=== PATIENT | male | born 1965 | race Hispanic/Latino ===

== ENCOUNTER 2019-03-16 10:06 | Inpatient (IN) | payer SELFPAY ==
[~2019-03-16] VITALS: Ht 165.1 cm; Wt 60.5 kg
[2019-03-16] VITALS (10 sets, daily range): BP systolic 98–135; BP diastolic 60–73
[~2019-03-16 10:06] MED LIST: CLOTRIMAZOLE1 % TOP; DOXYCYCL HYC100 MG PO; GLYBURIDE5 MG PO; KEFLEX500 M1 PO; LEVEMIR1000 UNITS; LISINOPRIL5 MG PO; LOPID600 MG PO; LORTAB 10-325 M1 TAB PO; LORTAB 5/3255 MG PO; LORTAB 7.57.5 MG PO; METFORMIN500 MG PO; NOVOLIN 70/30 SC; PENICILLN VK500 MG PO; PERCOCET 5/325M1 TAB PO; SIMVASTATIN10 MG PO
--- NOTE | 2019-03-16 10:17 | NUR ---
PATIENT TO ROOM VIA WHEELCHAIR AND PHYSICIAN AT BEDSIDE FOR EVAL
--- NOTE | 2019-03-16 10:52 | NUR ---
IV ACCESS OBTAINED NITRO SL PROVIDED AND ASPIRIN GIVEN O2 APPLIED FOR CARDIAC PROTOCOL, SAMANTHA STEWARD ATTEMPTED SECND ACCESS W/O SUCCESS INTERLOCKER WILL RETRY, IVF STARTED ORDERED, VS SIMON, PT DYPNIC BUT O2 SATS 100% ON ROOM AIR PRIOR TO O2 APPLICATION, PT ADMITS TO BEING NON COMPLIANT DIABETIC WELL.
[2019-03-16 10:56] LABS: HEMATOCRIT 34.7 % (39.0-50.0); HEMOGLOBIN 14.3 g/dl (14.0-18.0); MEAN CELL VOLUME 92.5 fL CALC (80.0-100.0); MEAN CORPUSCULAR HGB 38.1 pG CALC (26.0-32.0); MEAN CORPUSCULAR HGB CONC 41.2 g/L CALC (32.0-36.0); NEUT# 8.58 thou/uL (1.82-7.42); RED BLOOD COUNT 3.75 mill/uL (4.70-6.10); RED CELL DISTRI WIDTH 13.5 % (11.5-15.5)
--- NOTE | 2019-03-16 11:00 | NUR ---
PT CONTINUES TO HAVE TACHYPNEA AND REPEATED INSTRUCTIONS TO PERFORM PURSED LIP BREATHING WITHOUT GOOD RESULTS, IV ACCESS INTACCT LABS DRAWN ORDERED, PT UNABLE TO GIVE US A MEDICATION HISTORY AND ADMITS TO BEING NON COMPLIANT WITH MEDICATIONS.
[2019-03-16 11:10] LABS: ALBUMIN 3.9 g/dL (3.2-5.0); AMYLASE 81 u/l (30-110); BUN 12 mg/dL (9-20); BUN/CREATININE RATIO 15 (12-20 (CALC)); CHLORIDE 106 mmol/l (95-108); CREATININE 0.8 mg/dL (0.7-1.3); ETHYL ALCOHOL 0 mg/dl (0-30); GFR > 60 ML/MIN (>=60 (CALC)); GFR FOR AFR.AMER. > 60 ML/MIN (>=60 (CALC)); LIPASE 438 u/l (23-300); MAGNESIUM 1.8 mg/dL (1.6-2.3); POTASSIUM 4.4 mmol/l (3.5-5.1); SODIUM 137 mmol/l (137-146)
[2019-03-16 11:20] LABS: ALKALINE PHOSPHATASE 161 u/l (38-126); ANION GAP 30 (6-22 (CALC)); BILIRUBIN, TOTAL 0.6 mg/dL (0.0-1.4); CARBON DIOXIDE < 5 mmol/l (22-30); SGOT/AST 20 u/l (17-59); TOTAL PROTEIN 8.3 g/dL (6.3-8.2)
--- NOTE | 2019-03-16 11:47 | NUR ---
ACCU CHECK 426 INSULIN GTT INITIATED ORDERED PER PROTOCOL AFTER BICARB GIVEN IVP ANDD IVF ON SECOND LITER NS, COMFRT MEASURES PROVIDED, WILL CONTINUE TO MONITOR. EDUCATED PT REGARDING HOURLY ACCU CHECKS WHILE ON INSULIN GTT
--- NOTE | 2019-03-16 13:00 | NUR ---
PT TRANSPORTED TO ICU VIA STRECTHER WITH MONITOR IN PLACE. ALL BELONGINGS SENT WITH PATIENT AND INSULIN GTT INFUSING PER PROTOCOL.
--- NOTE | 2019-03-16 13:15 | NUR ---
PT TO ICU BED 6 VIA STRETCHER ACCOMPANIED BY ER NURSE. PT AMBULATED FROM STRETCHER TO BED WITH MINIMAL ASSIST. PT ADMITTED FOR DKA. TACHYPNEIC RESPIRATIONS NOTED. PT ON O2 2L NC. ADMISSION ASSESSMENT COMPLETE AT THIS TIME. [facility] [employer] TRANSLATED. IV PATENT X1. ORIENTED TO ROOM AND UNIT. CALL LIGHT IN REACH. WILL CONTINUE TO MONITOR.
--- NOTE | 2019-03-16 13:20 | NUR ---
TEMP 95.4 CHERISE HUGGER APPLIED
[2019-03-16 14:57] LABS: BUN 13 mg/dL (9-20); BUN/CREATININE RATIO 20 (12-20 (CALC)); CHLORIDE 115 mmol/l (95-108); CREATININE 0.7 mg/dL (0.7-1.3); GFR > 60 ML/MIN (>=60 (CALC)); GFR FOR AFR.AMER. > 60 ML/MIN (>=60 (CALC)); POTASSIUM 4.3 mmol/l (3.5-5.1); SODIUM 140 mmol/l (137-146)
[2019-03-16 15:04] LABS: ANION GAP 24 (6-22 (CALC)); CARBON DIOXIDE < 5 mmol/l (22-30)
--- NOTE | 2019-03-16 15:04 | NUR ---
DR MURPHY NOTIFIED OF CRITICAL LABS
--- NOTE | 2019-03-16 15:30 | NUR ---
NEW ORDERS RECIEVED FROM DR MURPHY.
--- NOTE | 2019-03-16 15:59 | NUR ---
CHERISE DUNNE REMOVED AT THIS TIME TEMP NOW 98.0
--- NOTE | 2019-03-16 16:35 | NUR ---
PT WITH COMPLAINTS OF CHEST PAIN AT THIS TIME. EKG ORDERED. DR MURPHY NOTIFIED.
--- NOTE | 2019-03-16 16:42 | NUR ---
RT AT BEDSIDE AT THIS TIME FOR EKG
--- NOTE | 2019-03-16 17:01 | NUR ---
PT SHIVERING TEMP 97.0. PLACED PT BACK ON CHERISE HUGGER AT THIS TIME ON LOW. LAB AT BEDSIDE AT THIS TIME TO DRAW TROPONIN.
[2019-03-16 17:08] LABS: URINE BILIRUBIN - DIPSTICK NEGATIVE (NEGATIVE); URINE BLOOD DIPSTICK SMALL (NEGATIVE); URINE COLOR YELLOW; URINE GLUCOSE - DIPSTICK 500 mg/dL (NEGATIVE); URINE KETONE >=80 mg/dL (NEGATIVE); URINE LEUK ESTERASE NEGATIVE (NEGATIVE); URINE NITRITE - DIPSTICK NEGATIVE (Negative); URINE PH 5.5 (4.5-8.0); URINE PROTEIN - DIPSTICK 100 mg/dL (NEG-TRACE); URINE SPECIFIC GRAVITY >=1.030; URINE UROBILINOGEN - DIPSTICK 0.2 E.U./dL (0.2)
[2019-03-16 17:11] LABS: BARBITURATES NEGATIVE (NEGATIVE); COCAINE NEGATIVE (NEGATIVE); METHADONE NEGATIVE (NEGATIVE); OXCYCODONE NEGATIVE (NEGATIVE); TETRAHYDROCANNABIONOL NEGATIVE (NEGATIVE); TRICYLIC ANTIDEPRESSANTS NEGATIVE (NEGATIVE); URINE WBC 0-2 WBC/hpf (0-5)
--- NOTE | 2019-03-16 17:25 | NUR ---
PT TO CT ACCOMPANIED BY THIS UC ARCHITECT.
--- NOTE | 2019-03-16 17:40 | NUR ---
PT RETURNED FROM CT ACCOMPNIED BY THIS FULL STACK PHP DEVELOPER.
--- NOTE | 2019-03-16 17:45 | NUR ---
DR MURPHY AT BEDSIDE TO DISCUSS PLAN OF CARE. NEW ORDERS RECEIVED.
--- NOTE | 2019-03-16 18:16 | NUR ---
ICE CHIPS PROVIDED.
--- NOTE | 2019-03-16 18:28 | NUR ---
LAB AT BEDSIDE TO DRAW LABS
[2019-03-16 18:54] LABS: BUN 11 mg/dL (9-20); BUN/CREATININE RATIO 21 (12-20 (CALC)); CHLORIDE 115 mmol/l (95-108); CREATININE 0.5 mg/dL (0.7-1.3); GFR > 60 ML/MIN (>=60 (CALC)); GFR FOR AFR.AMER. > 60 ML/MIN (>=60 (CALC)); SODIUM 139 mmol/l (137-146)
[2019-03-16 18:58] LABS: ANION GAP 22 (6-22 (CALC)); POTASSIUM 3.4 mmol/l (3.5-5.1)
[2019-03-16 18:59] LABS: CARBON DIOXIDE < 5 mmol/l (22-30)
--- NOTE | 2019-03-16 19:00 | NUR ---
awakens easily. no c/o voiced. radiographer cardiac catheterization shows sinus rhythm hr 82. #20 lac d51/2ns infusing @ 150cchr, insulin gtt infusing @ 2u/hr. remains npo. fall precautions cont.
--- NOTE | 2019-03-16 19:20 | NUR ---
rt here. abgs drawn.
--- NOTE | 2019-03-16 22:00 | NUR ---
lab here. blood drawn.
[2019-03-16 22:27] LABS: ANION GAP 18 (6-22 (CALC)); BUN 10 mg/dL (9-20); BUN/CREATININE RATIO 19 (12-20 (CALC)); CHLORIDE 115 mmol/l (95-108); CREATININE 0.5 mg/dL (0.7-1.3); GFR > 60 ML/MIN (>=60 (CALC)); GFR FOR AFR.AMER. > 60 ML/MIN (>=60 (CALC)); POTASSIUM 3.4 mmol/l (3.5-5.1); SODIUM 138 mmol/l (137-146)
[2019-03-16 22:39] LABS: CARBON DIOXIDE 8 mmol/l (22-30)
[2019-03-17] VITALS (15 sets, daily range): BP systolic 82–122; BP diastolic 50–80
--- NOTE | 2019-03-17 00:01 | NUR ---
awakens easily. no c/io voiced. voided well.
--- NOTE | 2019-03-17 02:10 | NUR ---
lab here. blood drawn.
[2019-03-17 02:21] LABS: BUN 8 mg/dL (9-20); BUN/CREATININE RATIO 18 (12-20 (CALC)); CHLORIDE 114 mmol/l (95-108); CREATININE 0.5 mg/dL (0.7-1.3); GFR > 60 ML/MIN (>=60 (CALC)); GFR FOR AFR.AMER. > 60 ML/MIN (>=60 (CALC)); POTASSIUM 3.5 mmol/l (3.5-5.1); SODIUM 138 mmol/l (137-146)
[2019-03-17 02:24] LABS: ANION GAP 17 (6-22 (CALC)); CARBON DIOXIDE 11 mmol/l (22-30)
--- NOTE | 2019-03-17 04:00 | NUR ---
eyes closed. no apparent distress. quality assurance monitor final shows sinus rhythm hr 76.
[2019-03-17 05:21] LABS: MEAN CELL VOLUME 88.7 fL CALC (80.0-100.0); MEAN CORPUSCULAR HGB 34.6 pG CALC (26.0-32.0); RED BLOOD COUNT 3.18 mill/uL (4.70-6.10); RED CELL DISTRI WIDTH 13.3 % (11.5-15.5)
[2019-03-17 05:30] LABS: HEMATOCRIT 28.2 % (39.0-50.0)
[2019-03-17 05:42] LABS: ALKALINE PHOSPHATASE 97 u/l (38-126); ANION GAP 16 (6-22 (CALC)); BILIRUBIN, TOTAL 0.4 mg/dL (0.0-1.4); BUN 7 mg/dL (9-20); BUN/CREATININE RATIO 17 (12-20 (CALC)); CARBON DIOXIDE 12 mmol/l (22-30); CHLORIDE 114 mmol/l (95-108); CREATININE 0.4 mg/dL (0.7-1.3); GFR > 60 ML/MIN (>=60 (CALC)); GFR FOR AFR.AMER. > 60 ML/MIN (>=60 (CALC)); LIPASE 144 u/l (23-300); POTASSIUM 3.5 mmol/l (3.5-5.1); SGOT/AST 15 u/l (17-59); SODIUM 138 mmol/l (137-146)
[2019-03-17 05:45] LABS: ALBUMIN 2.8 g/dL (3.2-5.0); TOTAL PROTEIN 6.1 g/dL (6.3-8.2)
--- NOTE | 2019-03-17 06:00 | NUR ---
no acute change in condition. no distress.
--- NOTE | 2019-03-17 06:45 | NUR ---
REPORT RECEIVED. PT RESTING IN BED. RESP ARE EVEN AND UNLABORED NO DISTRESS NOTED. CALL LIGHT IN REACH.
--- NOTE | 2019-03-17 08:30 | NUR ---
PT RESTING IN BED WITH EYES CLOSED. AROUSES EASILY TO VERBAL STIMULI. PT IS ALERT AND ORIENTED X3. SHIFT ASSESSMENT COMPLETED AT THIS TIME. IV PATENT X1. CALL LIGHT IN REACH. WILL CONTINUE TO MONITOR
[2019-03-17] MEDS ORDERED: PRINIVIL5 MG PO (09:21)
[2019-03-17] MEDS ORDERED: GLUCOPHAGE850 MG PO (09:24)
[2019-03-17] MEDS ORDERED: GLIPIZIDE5 M2 PO (09:26)
[2019-03-17] MEDS ORDERED: LOPID600 MG PO (09:28)
--- NOTE | 2019-03-17 09:53 | NUR ---
DR MURPHY AT BEDSIDE AT THIS TIME.
--- NOTE | 2019-03-17 10:30 | NUR ---
PT RESTING IN BED AT THIS TIME. RESP ARE EVEN AND UNLABORED. NO DISTRESS NOTED. CALL LIGHT IN REACH. WILL CONTINUE TO MONITOR.
[2019-03-17 10:57] LABS: ANION GAP 15 (6-22 (CALC)); BUN 6 mg/dL (9-20); BUN/CREATININE RATIO 16 (12-20 (CALC)); CARBON DIOXIDE 12 mmol/l (22-30); CHLORIDE 112 mmol/l (95-108); CREATININE 0.4 mg/dL (0.7-1.3); GFR > 60 ML/MIN (>=60 (CALC)); GFR FOR AFR.AMER. > 60 ML/MIN (>=60 (CALC)); POTASSIUM 3.6 mmol/l (3.5-5.1); SODIUM 136 mmol/l (137-146)
--- NOTE | 2019-03-17 12:18 | NUR ---
PT SET UP FOR NOON MEAL
--- NOTE | 2019-03-17 12:30 | NUR ---
PT RESTING IN BED. RESP ARE EVEN AND UNLABORED. NO DISTRESS NOTED. CALL LIGHT IN REACH. WILL CONTINUE TO MONITOR.
--- NOTE | 2019-03-17 13:15 | NUR ---
PT WITH COMPLAINTS OF THROAT AND MID STERNAL PAIN SINCE EATING LUNCH. Janina WATKINS AT BEDSIDE TO INTERPRET. EXPLAINED TO PATIENT THAT HE WOULD BE RECIVING LONG ACTING INSULIN AND WE WOULD START DOING AC AND HS ACCU CHECKS. AND IF HE FELT LOW HIS SUGAR DROP LOW TO NOTIFY NURSING STAFF IMMEADIATELY. PT VERBALIZED UNDERSTANDING.
--- NOTE | 2019-03-17 13:30 | NUR ---
DR MURPHY NOTIFIED OF PAIN AFTER EATING. RECEIVED ORDERS TO CHANGE DIET TO CLEAR LIQDUID.
--- NOTE | 2019-03-17 14:24 | NUR ---
LAB AT BEDSIDE AT THIS TIME
[2019-03-17 14:56] LABS: ALBUMIN 2.7 g/dL (3.2-5.0); ALKALINE PHOSPHATASE 99 u/l (38-126); ANION GAP 15 (6-22 (CALC)); BILIRUBIN, TOTAL 0.4 mg/dL (0.0-1.4); BUN 5 mg/dL (9-20); BUN/CREATININE RATIO 15 (12-20 (CALC)); CARBON DIOXIDE 11 mmol/l (22-30); CHLORIDE 111 mmol/l (95-108); CREATININE 0.4 mg/dL (0.7-1.3); GFR > 60 ML/MIN (>=60 (CALC)); GFR FOR AFR.AMER. > 60 ML/MIN (>=60 (CALC)); POTASSIUM 3.6 mmol/l (3.5-5.1); SGOT/AST 16 u/l (17-59); SODIUM 134 mmol/l (137-146)
--- NOTE | 2019-03-17 15:43 | NUR ---
PT SITTING UP IN BED TALKING WITH CASE MANAGEMENT. RESP ARE EVEN AND UNLABORED. NO DISTRESS NOTED. CALL LIGHT IN REACH. WILL CONTINUE TO MONITOR.
--- NOTE | 2019-03-17 15:57 | NUR ---
PT WITH COMPLAINTS OF CONTINUES OF MIDSTERUM [PAIN WITH BURNING IN THROAT. DR MURPHY NOTFIED. NEW ORDERS RECIEVED.
--- NOTE | 2019-03-17 16:35 | NUR ---
PT RESTING IN BED WITH EYES CLOSED. RESP ARE EVEN AND UNLABORED. NO DISTRESS NOTED. CALL LIGHT IN REACH. WILL CONTINUETO MONITOR.
--- NOTE | 2019-03-17 17:40 | NUR ---
PT SET UP FOR PM MEAL
--- NOTE | 2019-03-17 18:22 | NUR ---
PT RESTING IN BED WTIH EYES CLOSED. RESP ARE EVEN ADN UNLABORED. NO DISTRESS NOTED. CALL LIGHT IN REACH. WILL CONTINUE TO MONITOR.
--- NOTE | 2019-03-17 19:15 | NUR ---
awakens easily. translated per alda mitchell. denies acute distress. cardiac exercise specialist shows sinus rhythm hr 83. instructed pt supper meal was @ bedside. pt admits he was asleep & didn't know. voids per urinal. fall prcautions cont.
--- NOTE | 2019-03-17 19:30 | NUR ---
lab here. blood drawn.
[2019-03-17 20:13] LABS: ANION GAP 17 (6-22 (CALC)); BUN 4 mg/dL (9-20); BUN/CREATININE RATIO 11 (12-20 (CALC)); CHLORIDE 108 mmol/l (95-108); CREATININE 0.4 mg/dL (0.7-1.3); GFR > 60 ML/MIN (>=60 (CALC)); GFR FOR AFR.AMER. > 60 ML/MIN (>=60 (CALC)); POTASSIUM 3.6 mmol/l (3.5-5.1); SODIUM 135 mmol/l (137-146)
[2019-03-17 20:14] LABS: CARBON DIOXIDE 14 mmol/l (22-30)
--- NOTE | 2019-03-17 22:00 | NUR ---
eyes closed. no distress. gambling monitor shows sinus rhythm hr 72.
[2019-03-18] VITALS (9 sets, daily range): BP systolic 106–128; BP diastolic 70–85
--- NOTE | 2019-03-18 00:01 | NUR ---
eyes closed. no distress. iv infusing well.
--- NOTE | 2019-03-18 02:00 | NUR ---
c/o luq pain. medicted as ordered.
--- NOTE | 2019-03-18 02:30 | NUR ---
eyes closed. no apparent distress.
--- NOTE | 2019-03-18 04:00 | NUR ---
resting quietly. resps even & unlabored. no apparent distress.
[2019-03-18 04:15] LABS: HEMATOCRIT 31.1 % (39.0-50.0); HEMOGLOBIN 11.7 g/dl (14.0-18.0); MEAN CELL VOLUME 90.7 fL CALC (80.0-100.0); MEAN CORPUSCULAR HGB 34.1 pG CALC (26.0-32.0); MEAN CORPUSCULAR HGB CONC 37.6 g/L CALC (32.0-36.0); RED BLOOD COUNT 3.43 mill/uL (4.70-6.10); RED CELL DISTRI WIDTH 15.3 % (11.5-15.5)
[2019-03-18 04:36] LABS: ANION GAP 15 (6-22 (CALC)); BUN 4 mg/dL (9-20); BUN/CREATININE RATIO 11 (12-20 (CALC)); CARBON DIOXIDE 15 mmol/l (22-30); CHLORIDE 108 mmol/l (95-108); CREATININE 0.4 mg/dL (0.7-1.3); GFR > 60 ML/MIN (>=60 (CALC)); GFR FOR AFR.AMER. > 60 ML/MIN (>=60 (CALC)); POTASSIUM 3.4 mmol/l (3.5-5.1); SODIUM 134 mmol/l (137-146)
--- NOTE | 2019-03-18 05:56 | NUR ---
eyes closed. no distress. soloist dancer shows sinus rhythm hr 63.
--- NOTE | 2019-03-18 06:55 | NUR ---
RECIEVED REPORT FROM CAMILO CUNNINGHAM. ASSUMED PT CARE.
--- NOTE | 2019-03-18 07:45 | NUR ---
PT SITTING UP IN BED. ALERT, ABLE TO MAKE SOME NEEDS KNOWN, DUE TO LANGUAGE BARRIER. PT SR ON TELEMETRY ,HR 68. PT NOTED WITH HAND GUARDING LUQ, ABDOMEN SOFT. BSX4 ACTIVE. AFEBRILE. BS 137. CALL LIGHT IN REACH. WILL MONITOR.
--- NOTE | 2019-03-18 09:12 | NUR ---
DR. MURPHY AT BEDSIDE FOR ASSESSMENT AND TO DISCUSS PLAN OF CARE, AMAYA AT BEDSIDE FOR TRANSLATION. NEW ORDERS RECIEVED, CALL LIGHT IN REACH. WILL MONITOR.
--- NOTE | 2019-03-18 10:04 | NUR ---
DIETARY AT BEDSIDE FOR EDUCATION, CARBS AND DIABETIC INFORMATION IN STATELESS PROVIDED.
--- NOTE | 2019-03-18 11:23 | NUR ---
DIETARY ON UNIT, PT REPOSITIONED SELF. LUNCH TRAY SET UP. CALL LIGHT IN REACH. WILL MONITOR.
--- NOTE | 2019-03-18 12:05 | NUR ---
NOTIFIED DR. MURPHY TO CLARIFY IVF ORDERED, NEW ORDERS RECIEVED. STOP IVF.
--- NOTE | 2019-03-18 14:00 | NUR ---
PT RESTING IN BED WITH EYES CLOSED, RESPIRATIONED EVEN/UNLABORED. CALL LIGHT IN REACH. WILL MONITOR.
--- NOTE | 2019-03-18 15:00 | NUR ---
PT LEFT UNIT VIA WC TO MS FOR SHOWER.
--- NOTE | 2019-03-18 15:22 | NUR ---
PT BACK FROM MS, ASSISTED BACK TO BED. PT TOLERATED TRANSFER AND SHOWER WELL. CALL LIGHT IN REACH. WILL MONITOR.
--- NOTE | 2019-03-18 16:28 | NUR ---
PT RESTING IN BED, SR ON TELEMETRY, RESPIRATIONS EVEN/UNLABORED. CALL LIGHT IN REACH. WILL MONITOR.
--- NOTE | 2019-03-18 18:05 | NUR ---
PT MEDICATED FOR LUQ PAIN ORDERED. PT RESTING IN BED, CALL LIGHT IN REACH. WILL MONITOR.
--- NOTE | 2019-03-18 19:30 | NUR ---
awakens easily. no acute distress. monitor tech shows sinus rhythm hr 93. po fluids taken well. voids per urinal. fall precautions cont.
[2019-03-19] VITALS (7 sets, daily range): BP systolic 108–139; BP diastolic 66–88
--- NOTE | 2019-03-19 00:01 | NUR ---
case monitor shows sinus rhythm hr 76.
--- NOTE | 2019-03-19 04:00 | NUR ---
crdiac monitor shows sinus rhythm hr 84.
--- NOTE | 2019-03-19 04:45 | NUR ---
lab here. blood drawn.
[2019-03-19 05:08] LABS: HEMATOCRIT 30.6 % (39.0-50.0); HEMOGLOBIN 11.8 g/dl (14.0-18.0); MEAN CELL VOLUME 88.7 fL CALC (80.0-100.0); MEAN CORPUSCULAR HGB 34.2 pG CALC (26.0-32.0); MEAN CORPUSCULAR HGB CONC 38.6 g/L CALC (32.0-36.0); RED BLOOD COUNT 3.45 mill/uL (4.70-6.10); RED CELL DISTRI WIDTH 14.1 % (11.5-15.5)
[2019-03-19 05:25] LABS: ANION GAP 11 (6-22 (CALC)); BUN 5 mg/dL (9-20); BUN/CREATININE RATIO 15 (12-20 (CALC)); CARBON DIOXIDE 23 mmol/l (22-30); CHLORIDE 103 mmol/l (95-108); CREATININE 0.3 mg/dL (0.7-1.3); GFR > 60 ML/MIN (>=60 (CALC)); GFR FOR AFR.AMER. > 60 ML/MIN (>=60 (CALC)); LIPASE 215 u/l (23-300); POTASSIUM 3.4 mmol/l (3.5-5.1); SODIUM 134 mmol/l (137-146)
--- NOTE | 2019-03-19 06:45 | NUR ---
RECIEVED REPORT FROM CAMILO CUNNINGHAM. ASSUMED PT CARE.
--- NOTE | 2019-03-19 07:15 | NUR ---
PT ALERT, ABLE TO MAKE NEEDS KNOWN WITH CATCH BASIN CLEANER CAMILO SUTTON. ASSESSMENT COMPLETED, RESPIRATIONS EVEN/UNLABORED, AFEBRILE . PT CONTINUES TO REPORT MILD DISCOMFORT AT LUQ. CALL LIGHT IN REACH. WILL MONITOR.
--- NOTE | 2019-03-19 08:00 | NUR ---
DIETARY ON UNIT, PT REPOSITIONED SELF. TOLERATED MEAL WELL.
--- NOTE | 2019-03-19 09:00 | NUR ---
PT ASSISTED TO BSC, LARGE LOOSE BROWN BM, ASSISTED BACK TO BED. PT TOLERATED TRANFER WELL. GUARDS REMAIN AT BEDSIDE. CALL LIGHT IN REACH.
[2019-03-19] MEDS ORDERED: LEVEMIR100 UNIT/M SC ×2 (11:29→12:06)
--- NOTE | 2019-03-19 11:30 | NUR ---
DIETARY ON UNIT, PT REPOSITIONED SELF. LUNCH TRAY SET UP.
--- NOTE | 2019-03-19 11:45 | NUR ---
DR. MORTON AT BEDSIDE FOR ASSESSMENT AND TO DISCUSS PLAN OF CARE. NEW ORDERS RECIEVED.
--- NOTE | 2019-03-19 12:00 | NUR ---
NOTIFIED STEFANIE OF PENDING DISCHARGE, PER CARMELITA, ILAN PT IS TO RECIEVE MEDICATIONS AT NO COST. STEFANIE UNABLE TO CONFIRM WITH RENETTA AT PHARMACY. DISCHARGE NOW PENDING UNTIL MEDICATION ENTREPRENEURIAL FINANCE PROFESSOR AND CHARGES CAN BE CONFIRMED.
[2019-03-19] MEDS ORDERED: PRINIVIL5 MG PO (12:06)
[2019-03-19] MEDS ORDERED: SUCRALFATE1 GM/10 ML PO (12:06)
[2019-03-19] MEDS ORDERED: GLUCOPHAGE850 MG PO (12:06)
[2019-03-19] MEDS ORDERED: LOPID600 MG PO (12:06)
--- NOTE | 2019-03-19 13:10 | NUR ---
PT ASSISTED TO BSC, THEN BACK TO BED. CALL LIGHT IN REACH. WILL MONITOR.
--- NOTE | 2019-03-19 16:01 | NUR ---
PT RESTING IN BED , OFFERS NO COMPLAINTS AT THIS TIME. CALL LIGHT IN REACH. WILL MONITOR.
--- NOTE | 2019-03-19 17:38 | NUR ---
DIETARY ON UNIT, DINNER TRAY SET UP.
--- NOTE | 2019-03-19 20:10 | NUR ---
PT AWAKE RESTING IN BED. PT IS ALERT AND ORIENTED XX. VSS. RESP EVEN AND UNLABORED. SKIN IS WARM AND DRY. LUNGS CLEAR BILAT. ABD SOFT AND NONDISTENDED WITH BOWEL SOUNDS PRESENT. NO LOWER EXT EDEMA NOTED. PEDAL PULSES PALPATED BILAT. HEPLOCK PATENT IN LEFT A.C. NO REDNESS OR TENDERNESS AT SITE. MONITOR READING SR. CALL PLACED TO DR MORTON AND INFORMED PT DOES NOT HAVE A SCRIPT FOR GLUCOMETER, LANCETS, OR INSULIN SYRINGES. PER DR MORTON HOLD DISCHARGE FOR TONIGHT AND HE WILL WRITE A SCRIPT IN A.M. FOR PT. PT INFORMED HE WILL BE STAYING THE NIGHT. PT STATES HE WOULD LIKE TO STAY TILL A.M. ACCUCHECK 261. WILL COVER WITH SLIDING SCALE COVERAGE. ORDER TO HOLD DISCHARGE RECEIVED WITH VERBAL READ BACK CONFIRMATION AND CHARTED. NURSING CATALYST CONCENTRATION OPERATOR DICK STEWARD INFORMED PT WILL NOT BE DISCHARED TONIGHT PER DR MORTON.
--- NOTE | 2019-03-19 21:10 | NUR ---
PT ATE EVENING SNACK. RESP EVEN AND UNLABORED. RESTING IN BED WATCHING T.V. VSS. OFFERS NO COMPLAINTS. CALL MENDEZ WITHIN REACH.
--- NOTE | 2019-03-19 22:05 | NUR ---
PT RESTING IN BED. RESP EVEN AND UNLABORED. OFFERS NO COMPLAINTS. CALL MENDEZ WITHIN REACH.
--- NOTE | 2019-03-20 00:20 | NUR ---
PT AWAKE RESTING IN BED. PT IS AFEBRILE. SKIN WARM AND DRY. RESP EVEN AND UNLABORED. MONITOR READING SR. PT OFFERS NO COMPLAINTS. VOIDING CLEAR YELLOW URINE. FREQUENT ROUNDS MADE. CALL MENDEZ WITHIN REACH.
[2019-03-20 02:05] VITALS: BP 117/65
--- NOTE | 2019-03-20 02:15 | NUR ---
RESTING IN BED WITH EYES CLOSED. RESP EVEN AND UNLABORED. NO DISTRESS NOTED. HEPLOCK PATENT. MONITOR READING SR. FREQUENT ROUNDS MADE. CALL MENDEZ WITHIN REACH.
[2019-03-20 04:00] VITALS: BP 106/66
--- NOTE | 2019-03-20 04:15 | NUR ---
NEURO CHECK UNCHANGED. RESP EVEN AND UNLABORED. ADELE PATENT. MONITOR READING SR. B/P 106/66. NO DISTRESS NOTED. OFFERS NO COMPLAINTS. FREQUENT ROUNDS MADE. CALL MENDEZ WITHIN REACH.
[2019-03-20 05:08] LABS: BUN 7 mg/dL (9-20); BUN/CREATININE RATIO 22 (12-20 (CALC)); CHLORIDE 102 mmol/l (95-108); CREATININE 0.3 mg/dL (0.7-1.3); GFR > 60 ML/MIN (>=60 (CALC)); GFR FOR AFR.AMER. > 60 ML/MIN (>=60 (CALC)); POTASSIUM 2.8 mmol/l (3.5-5.1); SODIUM 137 mmol/l (137-146)
[2019-03-20 05:13] LABS: ANION GAP 9 (6-22 (CALC)); CARBON DIOXIDE 29 mmol/l (22-30)
[2019-03-20 06:02] VITALS: BP 98/68
--- NOTE | 2019-03-20 06:10 | NUR ---
PT RESTING IN BED WITH EYES CLOSED. RESP EVEN AND UNLABORED. ASSESSMENT UNCHANGED. MONITOR SR. FREQUENT ROUNDS MADE. CALL MENDEZ WITHIN REACH.
--- NOTE | 2019-03-20 06:40 | NUR ---
DR MORTON INFORMED OF K 2.8. NEW ORDER RECEIVED TO USE ELECTROLYTE REPLACEMENT PROTOCOL. ORDER RECEIVED WITH READ BACK CONFIRMATION AND CHARTED.
--- NOTE | 2019-03-20 07:36 | NUR ---
PT RESTING IN BED WATCHING TV, DISCUSSED NOVOLOG INSULIN. ALLOWED PT TO ADMINISTER HIMSELF SINCE HE WILL BE DISCHARGED WITH INSULIN. DISCUSSED POC AND INFUSION OF POTASSIUM, PT VERBALIZED UNDERSTANDING. ASSESSMENT COMPLETED AT THIS TIME. CALL LIGHT IN REACH,CONTINUE TO MONITOR.
[2019-03-20 08:08] VITALS: BP 110/79
--- NOTE | 2019-03-20 08:42 | NUR ---
PT SITTING IN BED EATING BREAKFAST, LEVEMIR INSULIN ADMINISTERED BY PT. POTASSIUM INFUSING PT TOLERATING WELL. CALL LIGHT IN REACH,CONTINUE TO MONITOR.
--- NOTE | 2019-03-20 09:46 | NUR ---
SECOND POTASSIUM INFUSION INITIATED.PT VOICES NO NEEDS OR COMPLAINTS AT THIS TIME. CALL LIGHT IN REACH,CONTINUE TO MONITOR.
--- NOTE | 2019-03-20 11:30 | NUR ---
RECEIVED INSULIN PEN FOR EDUCATION PURPOSES FROM PHARMACY, PT EDUCATED AND DEMONSTRATED USE OF INSULIN PEN. DISCUSSED DISCHARGE INFORMATION, PT VERBALIZED UNDERSTANDING. SIGNED FORMS. IV SITE REMOVED CATHETER INTACT.
== END 2019-03-20 12:05 | disposition home or self-care (01) | DRG 637 ==
LOC: ED 10:06 → ICU 11:44 → ED 11:46 → ED-I 11:47 → ICU 03-18 16:38
PROVIDERS: Internal Medicine; ADMIT Internal Medicine; ATTEND Internal Medicine
DX: E11.10 Type 2 diabetes mellitus with ketoacidosis without coma (principal); K85.80 Other acute pancreatitis without necrosis or infection; I10 Essential (primary) hypertension; E78.1 Pure hyperglyceridemia; T38.3X6A Underdosing of insulin and oral hypoglycemic [antidiabetic] drugs, initial encounter; Z91.120 Patient's intentional underdosing of medication regimen due to financial hardship; Z72.89 Other problems related to lifestyle; Z79.4 Long term (current) use of insulin
CPT/HCPCS: S0164

== ENCOUNTER 2019-03-21 13:30 | Emergency (ER) | payer SELFPAY ==
[~2019-03-21 13:30] MED LIST changes: +GLIPIZIDE5 M2 PO; +GLUCOPHAGE850 MG PO; +LEVEMIR100 UNIT/M SC; +PRINIVIL5 MG PO; +SUCRALFATE1 GM/10 ML PO
== END 2019-03-21 13:50 | disposition left against medical advice (07) | DRG 951 ==
LOC: ED 13:30 → LWOBS 13:50
DX: Z91.19 Patient's noncompliance with other medical treatment and regimen (principal)